=== PATIENT | female | born 1980 | race Caucasian/White ===

== ENCOUNTER 2018-03-25 06:41 | Emergency (ER) | END 2018-03-25 07:26 | disposition home or self-care (01) ==

== ENCOUNTER 2018-04-20 19:08 | Emergency (ER) | END 2018-04-21 00:11 | disposition home or self-care (01) ==

== ENCOUNTER 2019-01-19 11:51 | Emergency (ER) | payer OTHER ==
[~2019-01-19] VITALS: Wt 67.0 kg
[~2019-01-19 11:51] MED LIST: CEPH-443 PO; CETI10CA PO; FLUT9.9S NASAL; HC.5O30 TOP; HYDR-3498 PO; IBUP-1542 PO; NAPR-985 PO; OXYC-279 PO; PNV1TABL43 PO; PREN1TAB12 PO; PREN1TAB49
[2019-01-19 11:52] VITALS: BP 134/62; PULSE 68; RESP 18
[2019-01-19] MEDS ORDERED: ACETAMINOPHEN 500 MG TAB PO STA (13:17)
[2019-01-19] MEDS ORDERED: SODI126M NASAL (13:36)
[2019-01-19] MEDS ORDERED: AMOX1TAB10 PO (13:36)
[2019-01-19] MEDS ORDERED: PSEU120T11 PO (13:36)
--- NOTE | 2019-01-19 13:39 | ERD ---
ER Documentation Chief Complaint Chief Complaint LEFT SIDE EAR PAIN SINCE THIS MORNING GOT WORSE NOW. NO URI SYPMTOMS HPI This is a 38-year-old female presents ED with nasal congestion runny nose and left ear pain times 2 weeks. Patient admits to some sinus pain and sinus pressure over the past few days. Also admits to sore throat. Denies fever, chills, cough, shortness breath, trouble breathing, sputum production, nausea, vomiting, diarrhea, constipation or other symptoms. No known drug allergies. ROS All systems reviewed and are negative except as per history of present illness. Medications Home Meds Active Scripts Amoxicillin/Potassium Clav (Amox-Clav 875-125 mg Tablet) 875-125 mg Tab, 1 TAB PO BID for 10 Days, #20 TAB Prov:PRIETO KURTZ PA-C 01/19/19 Pseudoephedrine Hcl (Sudafe 12-Hour) 120 Mg Tablet.er, 120 MG PO BID PRN for CONGESTION for 5 Days, TAB.SA Prov:PRIETO KURTZ PA-C 01/19/19 Sodium Chloride (Saline Nasal Mist) 126 Ml Mist, 1 SPRAY NASAL DAILY PRN for NASAL CONGESTION for 7 Days, BOTTLE Prov:PRIETO KURTZ PA-C 01/19/19 Naproxen* (Naprosyn*) 500 Mg Tablet, 500 MG PO BID PRN for PAIN AND/OR INFLAMMATION for 10 Days, #20 TAB Prov:SILVANO LORENZO 04/20/18 Hydrocortisone* Topical (Hydrocortisone* Topical) 0.5%- 28.35 Gm Oint, 1 APPLIC TOP BID, #1 TUB Prov:OLINDA LEGER PA-C 03/25/18 Ibuprofen* (Ibuprofen*) 600 Mg Tablet, 600 MG PO Q8 for PAIN AND/OR INFLAMMATION, #30 TAB Prov:NAVA DELEON MD 09/17/16 Oxycodone HCl/Acetaminophen (Percocet 5-325 mg Tablet) 1 Each Tablet, 1 EACH PO TID for PAIN, #12 TAB Prov:NAVA DELEON MD 09/17/16 Cetirizine Hcl* (Zyrtec*) 10 Mg Capsule, 10 MG PO DAILY, #10 TAB.CHEW Prov:MAILE ANTOINE MD 07/12/16 Fluticasone Propionate (Flonase Allergy Relief) 9.9 Ml [place].susp, 1 SPRAY NASAL BID for NASAL CONGESTION, #1 BOTTLE TO EACH NOSTRIL Prov:MAILE ANTOINE MD 07/12/16 Cephalexin* (Keflex*) 500 Mg Capsule, 500 MG PO BID for 5 Days, CAP Prov:DOUGLAS CALDWELL PA-C 12/09/15 Hydrocodone Bit-Acetaminophen* ([place]*) 5-325 Mg Tab, 1 TAB PO Q4H PRN for PAIN, #14 TAB Prov:DEBBIE LINDA PA-C 06/07/15 Ibuprofen* (Ibuprofen*) 600 Mg Tablet, 600 MG PO Q6, #30 TAB Prov:DEBBIE LINDA PA-C 06/07/15 Reported Medications Vit/Fe Fumarate/Fa* ( Vitamin Tablet*) 1 Tab Tablet, 1 TAB PO DAILY 12/23/13 Vit/Fe Fumarate/Fa ( 1-1 Tablet) 1 Tab Tablet, 1 TAB PO DAILY, #1 09/13/12 Vits W-Ca,Fe,Fa(<1MG) () 1 Tab Tablet 08/28/12 Allergies Allergies: Coded Allergies: No Known Drug Allergies (Verified Allergy, Unknown, 01/19/19) PMhx/Soc History of Surgery: Yes (cs x 3, RIGHT KNEE SX) Anesthesia Reaction: No Hx Neurological Disorder: No Hx Respiratory Disorders: No Hx Cardiac Disorders: No Hx Psychiatric Problems: No Hx Miscellaneous Medical Probl: No Hx Alcohol Use: No Hx Substance Use: No Hx Tobacco Use: No Smoking Status: Never smoker FmHx Family History: No diabetes Physical Exam Vitals Vital Signs Date Temp Pulse Resp B/P (MAP) Pulse Ox O2 O2 Flow FiO2 Time Delivery Rate 01/19/19 98.5 68 18 134/62 99 11:52 (86) Physical Exam Const: No acute distress Head: Atraumatic Eyes: Normal Conjunctiva ENT: Normal External Ears, Nose and Mouth. Erythematous nasal mucosa with clear rhinorrhea, there is tenderness to percussion of the bilateral maxillary sinuses, left greater than right, tympanic membrane visualized bilaterally no bulging, erythema, purulent air-fluid line seen, no tonsillar adenopathy, exudate or erythema, no kissing tonsils, no uvula deviation, Neck: Full range of motion. No meningismus. Resp: Clear to auscultation bilaterally Cardio: Regular rate and rhythm, no murmurs Ext: No cyanosis, or edema Neur: Awake and alert Psych: Normal Mood and Affect Results 24 hrs Current Medications Medications Dose Sig/Matt Start Time Status Last (Trade) Ordered Route PRN Stop Time Admin Dose Reason Admin 1,000 mg ONCE STAT 01/19/19 DC 01/19/19 Acetaminophen PO 13:17 13:25 (Tylenol 01/19/19 13:19 Tab) Procedures/MDM ER COURSE: The patient was given Tylenol The medication was well tolerated and the patient reports improvement in symptoms. The patient was stable throughout ED course. I kept the patient and/or family informed of laboratory and diagnostic imaging results throughout the emergency room course. The patient was promptly evaluated and a treatment plan was devised based on H&P and other data. This plan was discussed with the patient who agreed and had no further questions or concerns prior to discharge. MEDICAL DECISION MAKIN-year-old female presents ED with nasal congestion, sinus pain and pressure times 2 weeks. Given history and physical this is likely sinusitis. No evidence of ENT emergency including the not limited to retro pharyngeal abscess, peritonsillar abscess, Ludwigs, epiglottitis, mastoiditis. No evidence of sepsis. Patient's vitals are stable she can be managed outpatient with close follow-up. Advised patient follow up with primary care in 48 hours. Return to ED with any worsening symptoms DISPOSITION PLAN: We discussed follow up with the patient's primary care doctor within 24 to 48 hours. Patient counseled regarding my diagnostic impression and care plan. Prior to discharge all questions answered. Pt agrees with treatment plan and understands strict return precautions. Precautionary instructions provided including instructions to return to the ER if not improving or for any worsening or changing symptoms or concerns. SPECIALIST FOLLOW UP RECOMMENDED: None Patient has been advised to follow up with primary care in 1-2 days. Disclaimer: Inadvertent spelling and grammatical errors are likely due to EHR/dictation software use and do not reflect on the overall quality of patient care. Also, please note that the electronic time recorded on this note does not necessarily reflect the actual time of the patient encounter. Departure Diagnosis: Primary Impression: Sinusitis Sinusitis location: maxillary Chronicity: acute Recurrence: non- recurrent Qualified Codes: J01.00 - Acute maxillary sinusitis, unspecified Condition: Stable Patient Instructions: Sinusitis, Abx Tx Referrals: COMMUNITY CLINICS YOU HAVE RECEIVED A MEDICAL SCREENING EXAM AND THE RESULTS INDICATE THAT YOU DO NOT HAVE A CONDITION THAT REQUIRES URGENT TREATMENT IN THE EMERGENCY DEPARTMENT. FURTHER EVALUATION AND TREATMENT OF YOUR CONDITION CAN WAIT UNTIL YOU ARE SEEN IN YOUR DOCTORS OFFICE WITHIN THE NEXT 1-2 DAYS. IT IS YOUR RESPONSIBILITY TO MAKE AN APPOINTMENT FOR FOLOW-UP CARE. IF YOU HAVE A PRIMARY DOCTOR --you should call your primary doctor and schedule an appointment IF YOU DO NOT HAVE A PRIMARY DOCTOR YOU CAN CALL OUR PHYSICIAN REFERRAL HOTLINE AT IF YOU CAN NOT AFFORD TO SEE A PHYSICIAN YOU CAN CHOSE FROM THE FOLLOWING FORMERLY [facility] [address] [facility]. [facility] [address] [facility] [address] [facility] [address] [facility]. [facility] [address] [facility]. [facility] [address] Additional Instructions: Patient advised to return to the ED immediately for new or worsening symptoms. Patient advised to follow up with primary care provider in the next 24-48 hours. Patient verbalized understanding and agrees with treatment plan and course of action. If patient has no primary care they may follow up with one of the critical access hospital clinics listed on the following page or one of the options listed below [facility] + [facility] [address] [place] [address] or [facility] [address] [place] [address] or [facility] [address] [place] [address] PRIETO KURTZ PA-C Jan 19, 2019 13:39
== END 2019-01-19 13:53 | disposition home or self-care (01) ==
LOC: FTE 11:51
DX: J01.00 Acute maxillary sinusitis, unspecified (principal)
CPT/HCPCS: Z7502; Z7610; 99282